=== PATIENT | female | born 1965 | race Two or more races ===

== ENCOUNTER 2024-08-17 18:56 | Emergency (ER) | payer MEDICAID, OTHER ==
[~2024-08-17] VITALS: Ht 162.6 cm; Wt 77.5 kg
--- NOTE | 2024-08-17 19:13 | ED.PDOC ---
Back pain HPI HPI Comments PT PRESENTED TO ED FOR RIGHT FOOT NUMBNESS/TINGLING X3 DAYS. PT DENIED ANY TRAUMA/FALLS/INJURIES TO RLE. RIGHT FOOT DISCOLORATION NOTED ON 2ND & 3RD DIGITS. Time Seen by MD: 18:58 Reviewed Notes: Nurses Notes, Medications, Allergies Allergies: Coded Allergies: No Known Drug Allergy (Verified Allergy, Unknown, 08/17/24) Information Source: Patient Past Medical History PAST MEDICAL HISTORY: DM Surgical History: Denies all surgeries ENGRAVING SUPERVISOR History: No Pertinent ENGRAVING SUPERVISOR History Family History Family History: Reviewed,noncontributory to illness Social History Smoker: Non-Smoker Alcohol: Denies ETOH Use Drugs: Denies Drug Use Constitutional: denies: chills, diaphoresis, fatigue, fever, malaise, sweats, weakness, others EENTM: denies: blurred vision, double vision, ear bleeding, ear discharge, ear drainage, ear pain, ear ringing, eye pain, eye redness, hearing loss, mouth pain, mouth swelling, nasal discharge, nose bleeding, nose congestion, nose pain, photophobia, tearing, throat pain, throat swelling, voice changes, others Respiratory: denies: cough, hemoptysis, orthopnea, SOB at rest, shortness of breath, SOB with excertion, stridor, wheezing, others Cardiovascular: denies: chest pain, dizzy spells, diaphoresis, Dyspnea on exertion, edema, irregular heart beat, left arm pain, lightheadedness, palpitations, PND, syncope, others Musculoskeletal: reports: joint pain, joint swelling; denies: back pain, gout, muscle pain, muscle stiffness, neck pain, others Integumetry: reports: bruises; denies: change in color, change in hair/nails, dryness, laceration, lesions, lumps, rash, wounds, others Allergic/Immunocompromised: denies: Difficulty Healing, Frequent Infections, Hives, Itching, others Hematologic/Lymphatic: denies: anemia, blood clots, easy bleeding, easy bruising, swollen glands, others Endocrine: denies: excessive hunger, excessive sweating, excessive thirst, excessive urination, flushing, intolerance to cold, intolerance to heat, unexplained weight gain, unexplained weight loss, others Psychiatric: denies: anxiety, bipolar disorder, depression, hopeless, panic disorder, schizophrenia, sleepless, suicidal, others Physical Exam General Appearance: No Apparent Distress, Normal HEENT: Pharynx Normal Neck: Full Range of Motion, Non-Tender Respiratory: Lungs Clear, No Respiratory Distress, Normal Breath Sounds Cardiovascular: No Murmur, Normal Peripheral Pulses, Regular Rate/Rhythm Breast Exam: Deferred Gastrointestinal: Non Tender, Soft Genitalia: Deferred Pelvic: Deferred Rectal: Deferred Extremities: No calf tenderness, Normal capillary refill, Normal inspection, Normal range of motion, Non-tender, No pedal edema Musculoskeletal : Location: Right Extremity Location: Foot (Son-in-law for a foot distal aspect between 3rd and 4th toe noted trace edema trace ecchymosis moderate tenderness no noted crepitus or bony prominence strength sensory motion intact positive pedal pulses) Apperance: Normal Neurologic: Alert, 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 Was a procedure done?: No Back Pain Differential Dx Differential Diagnosis: Fracture, Musculoskeletal Pain, Strain X-Ray, Labs, Meds, VS Vital Signs Date Time Temp Pulse Resp B/P (MAP) Pulse Ox O2 Delivery O2 Flow Rate FiO2 08/17/24 21:04 99.1 75 17 181/84 (116) 99 99.1 08/17/24 19:32 98.3 80 16 180/80 (113) 98 98.3 Lab Test 08/17/24 19:24 Range/Units POC Glucose 101 70-106 mg/dl X-Ray, Labs, Meds, VS Comment X-RAY OF RIGHT FOOT NEGATIVE FOR ACUTE FRACTURES DISLOCATIONS SUBLUXATIONS OR OSSEOUS LESIONS. LIKELY A MUSCLE STRAIN/SPRAIN. ADVISED ON RICE. ADVISED [id number] TYLENOL NEEDED FOR THE PAIN AND SWELLING PER LABELED DOSING INSTRUCTIONS. ADVISED TO FOLLOW UP WITH HER PCP IN 2 DAYS ER RETURN PRECAUTIONS GIVEN PATIENT INDICATES UNDERSTANDING AGREES WITH DISCHARGE PLAN OF CARE. Time of 1ST Reevaluation: 19:13 Reevaluation 1ST: Unchanged Time of 2ND Reevaluation: 21:34 Reevaluation 2ND: Improved Patient Education/Counseling: Diagnosis, Treatment, Prognosis, Need For Follow Up Family Education/Counseling: Diagnosis, Treatment, Prognosis, Need For Follow Up, No Family Present Departure 1 Departure Time of Disposition: 21:33 Impression: Primary Impression: Sprain of foot, right Qualified Codes: S93.601A - Unspecified sprain of right foot, initial encounter Disposition: HOME / SELF CARE / HOMELESS Condition: Stable Discharged With: Self Critical Care Note Critical Care Time?: No Stability Stability form required: SHARAD Fung Aug 17, 2024 19:13
[2024-08-17 21:04] VITALS: BP 181/84; PULSE 75; RESP 17; TEMP 99.1; O2SAT 99
--- NOTE | 2024-08-17 21:25 | DVH ---
EXAM: XY R FOOT 3 VIEW XRAY CLINICAL INDICATION: swelling and pain TECHNIQUE: XY R FOOT 3 VIEW XRAY Comparison: None FINDINGS/IMPRESSION: There is no evidence of acute fracture or dislocation. The visualized joint space is well maintained. The alignment is anatomical. There is no radiopaque foreign body.
== END 2024-08-17 21:55 | disposition home or self-care (01) ==
LOC: ER 19:05
DX: S93.504A Unspecified sprain of right lesser toe(s), initial encounter (principal); E11.9 Type 2 diabetes mellitus without complications; X58.XXXA Exposure to other specified factors, initial encounter; Y93.89 Activity, other specified; Y92.89 Other specified places as the place of occurrence of the external cause; Y99.8 Other external cause status
CPT/HCPCS: 73630; 82947; 82962